=== PATIENT | female | born 1960 | race Caucasian/White ===

== ENCOUNTER 2017-12-12 16:12 | Emergency (ER) | payer BC ==
--- NOTE | 2017-12-12 16:43 | Emergency Department Record ---
History of Present Illness - General Chief Complaint: Abdominal Pain Stated Complaint: CONSTIPATION Time Seen by Provider: 12/12/17 16:32 Source: Patient, Family Mode of Arrival: Ambulatory Limitations: No limitations - History of Present Illness Initial Comments: 57 yo female presents with constipation. She states this has been and on/off problem for over a year. She states the last 2 weeks the constipation symptoms have increased. She has only infrequent small firm stools. No fevers. Occasional streak of blood if she passes a firm stool. She has made an appointment with her PCP on . No nausea or vomiting. She has had a 20 pound weight loss in the last one year. She has hypothyroid. Her colonoscopy at age 50 was normal and she was told she did not need another one. She tried OTC without results for a BM. MD Complaint: Other (Constipation) Onset/Timin -: Week(s) Location: Diffuse Severity: Mild Quality: Cramping Improves With: Nothing Worsens With: Nothing Associated Symptoms: Denies other symptoms - Related Data Home Medications Medication Instructions Recorded Confirmed Last Taken Desog-E.estradiol/E.estradiol 1 each PO DAILY 12/12/17 12/12/17 Unknown [Azurette 28 Day Tablet] Levothyroxine Sodium 75 mcg PO DAILY 12/12/17 12/12/17 Unknown Meclizine HCl [Antivert] 25 mg PO ASDIR 12/12/17 12/12/17 Unknown Ondansetron [Zofran Odt] 4 mg PO ASDIR 12/12/17 12/12/17 Unknown Triamterene/Hydrochlorothiazid 1 each PO DAILY 12/12/17 12/12/17 Unknown [Triamterene-Hctz 75-50 mg Tab] Previous Rx's Medication Instructions Recorded Polyethylene Glycol 3350 [Miralax] 1 packet PO DAILY #14 packet 12/12/17 Allergies Allergy/AdvReac Type Severity Reaction Status Date / Time No Known Drug Allergies Allergy Verified 12/12/17 16:21 Travel Screening - Travel/Exposure Within Last 30 Days Have you traveled within the last 30 days?: No Review of Systems Constitutional: Denies: Chills, Fever, Malaise, Weakness Eyes: Denies: Eye discharge ENT: Denies: Congestion, Throat pain Respiratory: Denies: Cough Cardiovascular: Denies: Chest pain, Syncope Endocrine: Denies: Fatigue Gastrointestinal: Reports: As per HPI, Abdominal pain, Constipation. Denies: Diarrhea, Hematemesis, Hematochezia, Melena, Nausea, Vomiting Genitourinary: Denies: Dysuria, Urgency Musculoskeletal: Denies: Arthralgia, Back pain, Myalgia Skin: Denies: Bruising, Change in color, Rash Neurological: Denies: Headache, Numbness, Weakness Psychiatric: Denies: Anxiety Hematological/Lymphatic: Denies: Easy bleeding, Easy bruising, Swollen glands Past Medical History - SOCIAL HISTORY Smoking Status: Never smoker Alcohol Use: None Drug Use: None - RESPIRATORY Hx Respiratory Disorders: No - CARDIOVASCULAR Hx Cardio Disorders: Yes Hx Hypertension: Yes - NEURO Hx Neuro Disorders: Yes Hx Dizziness: Yes - GI Hx GI Disorders: No - Hx Genitourinary Disorders: Yes Hx Kidney Stones: Yes - ENDOCRINE Hx Endocrine Disorders: Yes Hx Thyroid Disease: Yes - MUSCULOSKELETAL Hx Musculoskeletal Disorders: No - PSYCH Hx Psych Problems: No - HEMATOLOGY/ONCOLOGY Hx Hematology/Oncology Disorders: No Family Medical History Any Significant Family History?: No Physical Exam - General General Appearance: Alert, Oriented x3, Cooperative, No acute distress Limitations: No limitations - Head Head exam: Normal inspection - Eye Eye exam: Normal appearance, PERRL. negative: Conjunctival injection, Scleral icterus - ENT ENT exam: Normal exam Ear exam: Normal external inspection Nasal Exam: Normal inspection - Cardiovascular Cardiovascular Exam: Regular rate, Normal rhythm, Normal heart sounds - GI/Abdominal GI/Abdominal exam: Soft, Normal bowel sounds. negative: Diminished bowel sounds , Guarding, Rebound, Rigid, Tenderness - Rectal Rectal exam: Fecal impaction, Heme (-) stool. negative: Black stool, Bloody stool, Decreased rectal tone - exam: Deferred - Extremities Extremities exam: Normal inspection, Full ROM, Normal capillary refill. negative: Tenderness - Back Back exam: Reports: Normal inspection - Neurological Neurological exam: Alert, Normal gait, Oriented X3 - Psychiatric Psychiatric exam: Normal affect, Normal mood - Skin Skin exam: Dry, Intact, Normal color, Warm Course Vital Signs 12/12/17 16:18 Temperature 97.7 F Pulse Rate 87 Respiratory 20 Rate Blood Pressure 114/71 Pulse Ox 99 - Reevaluation(s) Reevaluation #1: 12/12/17 17:27 The CBC was reviewed hgb 11.2 The CMP was unremarkable The Abdominal XR demonstrated large amount of stool in the rectosigmoid. This is consistent with the WADE of fecal impaction Enema ordered 12/12/17 18:13 The patient had a large bowel movement with very good relief 12/12/17 18:43 The patient is doing much better after large BM DC home to follow up with the PCP this week as scheduled Medical Decision Making - Lab Data Result diagrams: 12/12/17 16:45 12/12/17 16:45 Disposition Disposition: Discharge Clinical Impression: Constipation Disposition: Home, Self-Care Condition: (1) Good Instructions: Constipation (ED) Additional Instructions: Return to the ED if you have any pain, fever, vomiting or concerns Follow up on with your doctor as scheduled Prescriptions: Polyethylene Glycol 3350 [Miralax] 1 packet PO DAILY #14 packet Forms: Patient Portal Access Time of Disposition: 18:14 Quality - Quality Measures Quality Measures: N/A - Blood Pressure Screening Does Patient Have Any of the Following: No Blood Pressure Classification: Normal BP Reading Systolic Measurement: 114 Diastolic Measurement: 71 Screening for High Blood Pressure: < Normal BP, F/U Not Required > [G8783]
[2017-12-12 16:56] LABS: HEMATOCRIT 34.9 % (35.0-47.0); HEMOGLOBIN 11.2 gm/dl (11.6-16.0); MEAN CELL VOLUME 92.8 fl (81-97); MEAN CORPUSCULAR HGB CONC 32.1 g/dl (32-36); MEAN PLATELET VOLUME 11.5 fl (7.4-10.4); PLATELET COUNT 297 K/uL (130-400); RED BLOOD COUNT 3.76 M/uL (3.80-5.40); RED CELL DISTRIBUTION WIDTH 13.2 % (11.5-14.5); WHITE BLOOD COUNT W/O DIFF 9.7 K/uL (4.2-12.2)
[2017-12-12 16:57] LABS: MEAN CORPUSCULAR HEMOGLOBIN 29.7 pg (27-33)
[2017-12-12 17:09] LABS: BLOOD UREA NITROGEN 15 mg/dL (6-20); CREATININE 0.9 mg/dL (0.5-0.9); EST GLOMERULAR FILTRATION RATE > 60 mL/min
[2017-12-12 17:10] LABS: TOTAL PROTEIN 7.3 g/dL (6.6-8.7)
[2017-12-12 17:12] LABS: GLUCOSE,RANDOM 138 mg/dL (74-109)
[2017-12-12 17:15] LABS: ALB/GLOB RATIO 1.4 (1.1-1.8); ALBUMIN 4.2 g/dL (4.0-5.0); ALKALINE PHOSPHATASE 86 U/L (35-104); ALT/SGPT 9 U/L (<33); AST/SGOT 14 U/L (10.0-35.0)
[2017-12-12 17:25] LABS: THYROID STIMULATING HORMONE 0.67 uIU/mL (0.270-4.20)
--- NOTE | 2017-12-13 14:14 | RADIOLOGY REPORT ---
EXAM: ABDOMEN, TWO VIEWS HISTORY: PAIN. TECHNIQUE: Supine and erect views of the abdomen were obtained. Comparison: None. FINDINGS: Surgical clips right upper quadrant. Nonspecific bowel gas pattern. Scattered nondilated air fluid levels may reflect mild ileus. There is a large amount of stool in the rectal vault. No free air. IMPRESSION: LARGE AMOUNT OF STOOL IN THE RECTAL VAULT. A FEW SCATTERED AIR FLUID LEVELS MAY REFLECT MILD ILEUS. JOB NUMBER: [id number] MTDD
== END 2017-12-12 18:52 | disposition home or self-care (01) ==
LOC: ER 16:12
DX: K59.00 Constipation, unspecified (principal); R10.9 Unspecified abdominal pain; I10 Essential (primary) hypertension
CPT/HCPCS: 74019; 80053; 84443; 85027; 99283; 99284